=== PATIENT | male | born 1980 | race African-American/Black ===

== ENCOUNTER 2017-09-03 09:54 | Emergency (ER) | payer MEDICARE ==
[~2017-09-03] VITALS: Ht 182.9 cm; Wt 98.0 kg
[2017-09-03 09:57] VITALS: BP 146/94; PULSE 74; RESP 16; TEMP 98.6; O2SAT 100
[2017-09-03] MEDS ORDERED: AUGM875T3 PO (10:46)
--- NOTE | 2017-09-03 10:46 | PD ---
HPI Chief Complaint: Nosebleed Time Seen by Provider: 10:20 Travel History International Travel<30 days: No Contact w/Intl Traveler<30days: No Traveled to known affect area: No History of Present Illness HPI This is a 36-year-old male here for evaluation of intermittent nosebleed 1 week. Patient denies fever, headache, head trauma/facial trauma. He is not anticoagulated. No history of bleeding or clotting disorders. No bleeding gums or excessive unexplained bruising. He reports he's having intermittent right naris bleeding. He reports "blood clots" from his right naris when he blows his nose each morning. No active bleeding. Symptoms severity is mild. No aggravating or alleviating factors. PFSH Past Medical History Medical History: Denies Significant Hx Social History Tobacco Use: No Review of Systems Except as stated in HPI: all other systems reviewed are Neg HENT: Positive: Congestion Cardiovascular: No: Chest Pain or Discomfort Respiratory: No: Shortness of Breath Gastrointestinal: No: Abdominal Pain Physical Exam Narrative GENERAL: Alert and well-appearing 36 old male SKIN: Warm and dry. No areas of ecchymosis. No rash. HEAD: Normocephalic. EYES: No scleral icterus. Ears/nose/throat: Tenderness over the right frontal and maxillary sinuses. No bleeding from either naris. No septal hematoma or perforation. No blood in the posterior oropharynx. NECK: Supple, trachea midline. No lymphadenopathy. Data Data Last Documented VS Vital Signs Date Time Temp Pulse Resp B/P (MAP) Pulse Ox O2 Delivery O2 Flow Rate FiO2 09/03/17 09:57 98.6 74 16 146/94 (111) 100 Room Air MDM Medical Decision Making Medical Screen Exam Complete: Yes Emergency Medical Condition: Yes Differential Diagnosis Epistaxis, sinusitis, other Narrative Course This is a 36-year-old male here with reported mild intermittent nosebleed 1 week. His physical exam revealed no active bleeding. He does have some mild tenderness to the front maxillary and frontal sinus. He will be treated for sinusitis and to follow-up with ENT. Diagnosis Primary Impression: Sinusitis Qualified Codes: J32.1 - Chronic frontal sinusitis Referrals: Primary Care Physician Additional Instructions: Medications as prescribed. Follow-up with ear nose and throat doctor Scripts Amoxicillin-Clavulanate (Augmentin) 875-125 Mg Tab 1 TAB PO BID for Infection, #20 TAB 0 Refills Prov: Kitty Almaguer 09/03/17 Disposition: 01 DISCHARGE HOME Condition: Stable Kitty Almaguer Sep 03, 2017 10:46
== END 2017-09-03 11:14 | disposition home or self-care (01) ==
LOC: EDSEX 09:54 → NEPK 09:54
DX: J32.1 Chronic frontal sinusitis (principal)
CPT/HCPCS: 99283